=== PATIENT | male | born 1975 | race Caucasian/White ===

== ENCOUNTER → 2017-01-09 | Outpatient (CLI) | payer OTHER | END | disposition home or self-care (01) | LOC: CFH 08:38 → EDBD 09:30 | PROVIDERS: ATTEND Surgery | DX: C43.9 Malignant melanoma of skin, unspecified (principal) | CPT/HCPCS: 76857 ==

== ENCOUNTER 2017-03-29 09:53 | Day surgery (SDC) | payer OTHER ==
[~2017-03-29] VITALS: Ht 175.3 cm; Wt 87.8 kg
[2017-03-29 10:30] VITALS: BP 147/89
[2017-03-29] MEDS ORDERED: LIDOCAINE 1%, 2ML ONE (10:33)
[2017-03-29] MEDS ORDERED: LACTATED RINGERS 1,000 ML IV SCH (10:37)
[2017-03-29] MEDS ORDERED: ATOR20TA9 PO (10:48)
[2017-03-29] MEDS ORDERED: METF500T4 PO (10:48)
[2017-03-29] MEDS ORDERED: LISI-170 PO (10:48)
[2017-03-29] MEDS ORDERED: PLEASE ENTER ALLERGIES MC SCH (11:00)
[2017-03-29] MEDS ORDERED: LIDOCAINE 1%, 2ML SQ PRN (11:00)
[2017-03-29 11:52] LABS: INTERNATIONAL NORMALIZED RATIO 1.03 (0.93-1.1); PROTHROMBIN TIME 10.7 Seconds (9.6-11.5)
[2017-03-29 11:56] LABS: ALANINE AMINOTRANSFERASE 14 U/L (12-78); ALBUMIN 4.5 g/dL (3.4-5.0); ANION GAP 7 mmol/L (5-15); CALCIUM 9.4 mg/dL (8.5-10.1); CHLORIDE 104 mmol/L (98-107); CREATININE 1.66 mg/dL (0.7-1.3)
[2017-03-29 11:58] LABS: ALKALINE PHOSPHATASE 45 U/L (45-117); BILIRUBIN,TOTAL 0.6 mg/dL (0.2-1.0); TOTAL PROTEIN 8.1 g/dL (6.4-8.2)
[2017-03-29 12:15] LABS: BASOPHILS # (AUTO) 0.05 x10^3/uL (0-0.1); BASOPHILS % (AUTO) 1 % (0-1); EOSINOPHILS # (AUTO) 0.11 x10^3/uL (0-0.4); EOSINOPHILS % (AUTO) 1 % (1-7); LYMPHOCYTES # (AUTO) 1.85 x10^3/uL (1-3.4); LYMPHOCYTES % (AUTO) 18 % (22-44); MD SCAN; MEAN CORPUSCULAR HEMOGLOBIN 29.1 pg (27.5-34.5); MEAN CORPUSCULAR VOLUME 85.7 fL (81-97); MEAN PLATELET VOLUME 8.8 fL (7.4-10.4); MONOCYTES # (AUTO) 0.64 x10^3/uL (0.2-0.8); MONOCYTES % (AUTO) 6 % (2-9); NEUTROPHILS # (AUTO) 7.54 x10^3/uL (1.8-6.8); NEUTROPHILS % (AUTO) 74 % (42-75); PLATELET COUNT 310 x10^3/uL (130-400); RED BLOOD COUNT 5.75 x10^6/uL (4.38-5.82); RED CELL DISTRIBUTION WIDTH 13.7 % (9.4-14.8)
[2017-03-29] MEDS ORDERED: EPINEPHRINE 1 MG/ML, 1ML ONE (14:46)
[2017-03-29] MEDS ORDERED: BUPIVACAINE/PF 0.5% ONE (14:46)
[2017-03-29] MEDS ORDERED: MINERAL OIL 10 ML VIAL MC ONE (14:55)
[2017-03-29] MEDS ORDERED: FENTANYL PF 250 MCG/5ML ONE (15:03)
[2017-03-29] MEDS ORDERED: MIDAZOLAM 1 MG/ML, 2ML ONE (15:03)
[2017-03-29] MEDS ORDERED: CEFAZOLIN 1,000 MG ONE (15:18)
[2017-03-29] MEDS ORDERED: DEXAMETHASONE 4 MG/ML, 1ML ONE (15:18)
[2017-03-29] MEDS ORDERED: PROPOFOL 10 MG/ML, 20ML ONE (15:18)
[2017-03-29] MEDS ORDERED: ROCURONIUM 10 MG/ML,10ML ONE (15:18)
[2017-03-29] MEDS ORDERED: SUCCINYLCHOLINE 20 MG/ML, 10ML ONE (15:18)
[2017-03-29] MEDS ORDERED: ONDANSETRON 2MG/ML, 2ML ONE (15:18)
[2017-03-29] MEDS ORDERED: KETAMINE 10 MG/ML, 20ML ONE (15:28)
[2017-03-29] MEDS ORDERED: OXYcodone 5 MG/5 ML ORAL.SOL UDC PO PRN (16:30)
[2017-03-29] MEDS ORDERED: MEPERIDINE/PF 25MG/0.5ML IVPush PRN (16:30)
[2017-03-29] MEDS ORDERED: DIAZEPAM 5 MG/ML, 2ML IVPush PRN (16:30)
[2017-03-29] MEDS ORDERED: HYDROmorphone 1 MG/ML, 1ML IV PRN (16:30)
[2017-03-29] MEDS ORDERED: FENTANYL PF 100 MCG/2ML IV PRN (16:30)
[2017-03-29] MEDS ORDERED: PROMETHAZINE 25 MG/ML, 1ML IV PRN (16:30)
[2017-03-29] MEDS ORDERED: ACETAMINOPHEN 325 MG TABLET PO PRN (16:30)
[2017-03-29] MEDS ORDERED: OXYcodone 5 MG/5 ML ORAL.SOL UDC ONE (16:56)
[2017-03-29] MEDS ORDERED: ACETAMINOPHEN 650 MG/20.3 ML UDC ONE (16:56)
[2017-03-29] MEDS ORDERED: KETOROLAC 30 MG/1 ML ONE (16:57)
[2017-03-29] MEDS ORDERED: FENTANYL PF 100 MCG/2ML ONE (17:08)
[2017-03-29] MEDS ORDERED: PROMETHAZINE 25 MG/ML, 1ML ONE (17:10)
[2017-03-29] MEDS ORDERED: KETOROLAC 30 MG/1 ML IVPush ONE (17:30)
== END 2017-03-29 18:35 ==
LOC: OUT 09:53 → EDBD 15:00 → EDSTATUS 15:00 → OUT 18:35
PROVIDERS: ATTEND Surgery
DX: C43.71 Malignant melanoma of right lower limb, including hip (principal); E11.9 Type 2 diabetes mellitus without complications; E78.5 Hyperlipidemia, unspecified; I10 Essential (primary) hypertension; F17.210 Nicotine dependence, cigarettes, uncomplicated; Z72.89 Other problems related to lifestyle
CPT/HCPCS: 15220; 36415; 38500; 78195; 80053; 82962; 85025; 85610; 88307; 93005; A9541; C9898; J0171; J0330; J0690; J1100; J1885; J2250; J2405; J2550; J2704; J3010; J3490